=== PATIENT | male | born 1955 | race Caucasian/White ===

== ENCOUNTER 2017-07-12 06:32 | Emergency (ER) | payer BC ==
[2017-07-12 06:39] VITALS: RESP 18
--- NOTE | 2017-07-12 06:49 | ED ---
General Adult HPI - General Source: EMS, RN notes reviewed Mode of arrival: EMS Limitations: no limitations <Ramon Herron - Last Filed: 07/12/17 06:49> <Santos Renae - Last Filed: 07/12/17 08:06> - General Chief complaint: Abdominal Pain Stated complaint: chest pressure,cough Time Seen by Provider: 07/12/17 06:35 - History of Present Illness Initial comments: This is a 62-year-old male who presents emergency Department states he is nonsmoker he denies any history of diabetes hypertension high cholesterol. Patient states he has been coughing quite a bit lately and having quite a bit of sputum production as well as congestion. Patient states the lateral aspect of his ribs hurts bilaterally from all the coughing. Patient denies any diaphoresis. Patient denies any shortness of breath or difficulty breathing except while having a coughing fit. Patient denies any abdominal pain patient denies nausea vomiting diarrhea. Patient states he does have urinary frequency lately but no dysuria hematuria or urgency. Patient denies any fever or chills. Patient denies any chest pressure or heaviness. (Ramon Herron) - Related Data Previous Rx's Medication Instructions Recorded Azithromycin [Zithromax Z-pack] 0 mg PO DIRECTED #6 tab 07/12/17 Allergies Allergy/AdvReac Type Severity Reaction Status Date / Time No Known Allergies Allergy Verified 07/12/17 07:59 Review of Systems ROS Other: All systems not noted in ROS Statement are negative. <Ramon Herron - Last Filed: 07/12/17 06:49> ROS Other: All systems not noted in ROS Statement are negative. <Santos Renae - Last Filed: 07/12/17 08:06> ROS Statement: Those systems with pertinent positive or pertinent negative responses have been documented in the HPI. Past Medical History Past Medical History: Hypertension History of Any Multi-Drug Resistant Organisms: None Reported Past Surgical History: Appendectomy Past Psychological History: No Psychological Hx Reported Smoking Status: Former smoker Past Alcohol Use History: None Reported Past Drug Use History: None Reported <Ramon Herron - Last Filed: 07/12/17 06:49> General Exam Limitations: no limitations <Ramon Herron - Last Filed: 07/12/17 06:49> <Santos Renae - Last Filed: 07/12/17 08:06> - General Exam Comments Initial Comments: GENERAL: Patient is well-developed and well-nourished. Patient is nontoxic and well- hydrated and is in mild distress. ENT: Neck is soft and supple. No significant lymphadenopathy is noted. Oropharynx is clear. Moist mucous membranes. Neck has full range of motion without eliciting any pain. EYES: The sclera were anicteric and conjunctiva were pink and moist. Extraocular movements were intact and pupils were equal round and reactive to light. Eyelids were unremarkable. PULMONARY: Unlabored respirations. Good breath sounds bilaterally. CARDIOVASCULAR: There is a regular rate and rhythm without any murmurs gallops or rubs. ABDOMEN: Soft and nontender with normal bowel sounds. No palpable organomegaly was noted. There is no palpable pulsatile mass. SKIN: Skin is clear with no lesions or rashes and otherwise unremarkable. NEUROLOGIC: Patient is alert and oriented x3. Cranial nerves II through XII are grossly intact. Motor and sensory are also intact. Normal speech, volume and content. Symmetrical smile. MUSCULOSKELETAL: Normal extremities with adequate strength and full range of motion. No lower extremity swelling or edema. No calf tenderness. LYMPHATICS: No significant lymphadenopathy is noted PSYCHIATRIC: Normal psychiatric evaluation. (Ramon Herron) Medical Decision Making <Ramon Herron - Last Filed: 07/12/17 06:49> - Lab Data Result diagrams: 07/12/17 06:52 07/12/17 06:52 <Santos Renae - Last Filed: 07/12/17 08:06> - Medical Decision Making EKG shows normal sinus rhythm at 82 bpm NV interval is 1:30 QRS is 90 QT interv2 QTC is 446. EKG shows no ST segment elevation or depression. Dr. Renae will be taking over the care of this patient at 7 AM (Ramon Herron) 62-year-old male presenting with cough, nasal congestion, bilateral chest pain worse with coughing for 3 days. Patient's care was signed out at shift change awaiting laboratory studies and chest x-ray. I did reevaluate the patient, states he's had significant nasal congestion, cough with sputum production. No central chest pain. EKG is nonischemic. Chest x-ray shows hyperinflation consistent with COPD. laboratory studies reveal normal white count, stable hemoglobin, no signs of urinary tract infection, troponin negative. Patient does admit to quitting smoking 6 days ago. He did smoke for many years prior to this. No known history of COPD. On examination patient has good air entry, there is faint scattered wheezing, no respiratory distress. Patient is given DuoNeb and Decadron. He will be started on antibiotics for acute bronchitis. He will follow-up with his primary care physician. (Santos Renae) - Lab Data Lab Results 07/12/17 07/12/17 07/12/17 Range/Units 06:52 06:52 06:52 WBC 7.2 (3.8-10.6) k/uL RBC 4.97 (4.30-5.90) m/uL Hgb 14.9 (13.0-17.5) gm/dL Hct 45.4 (39.0-53.0) % MCV 91.4 (80.0-100.0) fL MCH 30.0 (25.0-35.0) pg MCHC 32.8 (31.0-37.0) g/dL RDW 13.1 (11.5-15.5) % Plt Count 303 (150-450) k/uL PT (9.0-12.0) sec INR (<1.2) APTT (22.0-30.0) sec Sodium 138 (137-145) mmol/L Potassium 4.2 (3.5-5.1) mmol/L Chloride 103 (98-107) mmol/L Carbon Dioxide 24 (22-30) mmol/L Anion Gap 11 mmol/L BUN 14 (9-20) mg/dL Creatinine 1.03 (0.66-1.25) mg/dL Est GFR (MDRD) Af Amer >60 (>60 ml/min/1.73 sqM) Est GFR (MDRD) Non-Af >60 (>60 ml/min/1.73 sqM) Glucose 158 H (74-99) mg/dL Calcium 9.2 (8.4-10.2) mg/dL Magnesium 1.8 (1.6-2.3) mg/dL Total Bilirubin 0.4 (0.2-1.3) mg/dL AST 26 (17-59) U/L ALT 22 (21-72) U/L Alkaline Phosphatase 96 (38-126) U/L Total Creatine Kinase 314 H (55-170) U/L CK-MB (CK-2) 4.3 H* (0.0-2.4) ng/mL CK-MB (CK-2) Rel Index 1.4 Troponin I <0.012 (0.000-0.034) ng/mL Total Protein 7.5 (6.3-8.2) g/dL Albumin 3.9 (3.5-5.0) g/dL Urine Color Urine Appearance (Clear) Urine pH (5.0-8.0) Ur Specific [place] (1.001-1.035) Urine Protein (Negative) Urine Glucose (UA) (Negative) Urine Ketones (Negative) Urine Blood (Negative) Urine Nitrite (Negative) Urine Bilirubin (Negative) Urine Urobilinogen (<2.0) mg/dL Ur Leukocyte Esterase (Negative) 07/12/17 07/12/17 Range/Units 06:52 07:10 WBC (3.8-10.6) k/uL RBC (4.30-5.90) m/uL Hgb (13.0-17.5) gm/dL Hct (39.0-53.0) % MCV (80.0-100.0) fL MCH (25.0-35.0) pg MCHC (31.0-37.0) g/dL RDW (11.5-15.5) % Plt Count (150-450) k/uL PT 10.2 (9.0-12.0) sec INR 1.0 (<1.2) APTT 25.5 (22.0-30.0) sec Sodium (137-145) mmol/L Potassium (3.5-5.1) mmol/L Chloride (98-107) mmol/L Carbon Dioxide (22-30) mmol/L Anion Gap mmol/L BUN (9-20) mg/dL Creatinine (0.66-1.25) mg/dL Est GFR (MDRD) Af Amer (>60 ml/min/1.73 sqM) Est GFR (MDRD) Non-Af (>60 ml/min/1.73 sqM) Glucose (74-99) mg/dL Calcium (8.4-10.2) mg/dL Magnesium (1.6-2.3) mg/dL Total Bilirubin (0.2-1.3) mg/dL AST (17-59) U/L ALT (21-72) U/L Alkaline Phosphatase (38-126) U/L Total Creatine Kinase (55-170) U/L CK-MB (CK-2) (0.0-2.4) ng/mL CK-MB (CK-2) Rel Index Troponin I (0.000-0.034) ng/mL Total Protein (6.3-8.2) g/dL Albumin (3.5-5.0) g/dL Urine Color Light Yellow Urine Appearance Clear (Clear) Urine pH 5.0 (5.0-8.0) Ur Specific [place] 1.004 (1.001-1.035) Urine Protein Negative (Negative) Urine Glucose (UA) Negative (Negative) Urine Ketones Negative (Negative) Urine Blood Negative (Negative) Urine Nitrite Negative (Negative) Urine Bilirubin Negative (Negative) Urine Urobilinogen <2.0 (<2.0) mg/dL Ur Leukocyte Esterase Negative (Negative) Disposition <Ramon Herron - Last Filed: 07/12/17 06:49> Time of Disposition: 08:05 <Santos Renae - Last Filed: 07/12/17 08:06> Clinical Impression: Acute bronchitis Disposition: HOME SELF-CARE Condition: Good Instructions: Acute Bronchitis (ED) Prescriptions: Azithromycin [Zithromax Z-pack] 0 mg PO DIRECTED #6 tab Referrals: Maximilian Yoder MD [Primary Care Provider] - 1-2 days
--- NOTE | 2017-07-12 07:10 | XR ---
EXAMINATION TYPE: XR chest 2V DATE OF EXAM: 07/12/2017 COMPARISON: NONE HISTORY: Chest pain TECHNIQUE: Frontal and lateral views of the chest are obtained. FINDINGS: The lungs are hyperinflated with biapical lucency and flattening of the diaphragms suggest ing underlying COPD. No evidence of focal consolidation, pleural effusion or pneumothorax. Heart is w ithin normal limits. Pulmonary vasculature en face is seen in the left basilar region as it appears l inear on the lateral image. Multilevel moderate degenerative changes of the thoracic spine are seen. IMPRESSION: 2. Radiographic sequela of COPD. 1. No acute cardiopulmonary process.
[2017-07-12 07:19] LABS: ALT 22 U/L (21-72); AST 26 U/L (17-59); Alkaline Phosphatase 96 U/L (38-126); Anion Gap 11 mmol/L; Blood Urea Nitrogen 14 mg/dL (9-20); Calcium 9.2 mg/dL (8.4-10.2); Carbon Dioxide 24 mmol/L (22-30); Chloride 103 mmol/L (98-107); Glucose 158 mg/dL (74-99); Magnesium 1.8 mg/dL (1.6-2.3); Non-African American GFR(MDRD) >60 (>60 ml/min/1.73 sqM); Potassium 4.2 mmol/L (3.5-5.1); Sodium 138 mmol/L (137-145); Total Bilirubin 0.4 mg/dL (0.2-1.3); Total Protein 7.5 g/dL (6.3-8.2)
[2017-07-12 07:23] LABS: Partial Thromboplastin Time 25.5 sec (22.0-30.0); Prothrombin Time 10.2 sec (9.0-12.0)
[2017-07-12 07:23] LABS: Appearance,Urine Clear (Clear); Bilirubin,Urine Negative (Negative); Glucose,Urine (UA) Negative (Negative); Ketones,Urine Negative (Negative); Leukocyte Esterase,Urine Negative (Negative); Nitrite,Urine Negative (Negative); Protein,Urine Negative (Negative); Specific Gravity,Urine 1.004 (1.001-1.035); UA Billing (MACRO vs. MICRO) CHEM; Urobilinogen,Urine <2.0 mg/dL (<2.0)
[2017-07-12 07:29] LABS: Creatine Kinase 314 U/L (55-170)
[2017-07-12 07:30] LABS: Aty Lym Flag Slight; CH 30.4; CHCM 33.4; HCT 45.4 % (39.0-53.0); HDW 2.24; HGB 14.9 gm/dL (13.0-17.5); MCHC 32.8 g/dL (31.0-37.0); MCV 91.4 fL (80.0-100.0); Mean Platelet Volume 6.9; RBC 4.97 m/uL (4.30-5.90); RDW 13.1 % (11.5-15.5); WBC 7.2 k/uL (3.8-10.6); WBC (Perox) 6.91
[2017-07-12 07:42] LABS: Troponin I <0.012 ng/mL (0.000-0.034)
[2017-07-12 07:49] LABS: Creatine Kinase MB 4.3 ng/mL (0.0-2.4)
[2017-07-12 07:57] LABS: Add Differential Manual Differential
[2017-07-12] MEDS ORDERED: IPRATROPIUM-ALBUTEROL 3 ML NEB INHALATION STA (07:59)
[2017-07-12] MEDS ORDERED: DEXAMETHASONE SOD PHOSPHATE 10 MG/ML 1 ML VIAL IV STA (07:59)
[2017-07-12 08:04] LABS: Nucleated Red Blood Cells 0 /100 WBC (0-0); Total Cells Counted 100
[2017-07-12 08:07] LABS: Manual Review Performed; RBC Morphology Normal
[2017-07-12 08:32] VITALS: BP 164/86; PULSE 79; TEMP 97.1
== END 2017-07-12 08:30 | disposition home or self-care (01) ==
LOC: EC 06:32
DX: J20.9 Acute bronchitis, unspecified (principal); R91.8 Other nonspecific abnormal finding of lung field; R07.9 Chest pain, unspecified; Z87.891 Personal history of nicotine dependence
CPT/HCPCS: 99284 ×2; 96374 ×2; 36415; 94640; 93005; 80053; 82550; 82553; 83735; 84484; 85025; 85610; 85730; 81003; 71020; J1100

== ENCOUNTER 2018-10-26 07:01 | Emergency (ER) | payer BC ==
[2018-10-26] MEDS ORDERED: SODIUM CHLORIDE 0.9% 1,000 ML IV STA (07:25)
[2018-10-26] MEDS ORDERED: MORPHINE SULFATE 4 MG/ML SYRINGE IV STA ×2 (07:25→08:22)
[2018-10-26] MEDS ORDERED: hydrALAZINE HCL 20 MG/ML 1 ML VIAL IVP STA (07:28)
--- NOTE | 2018-10-26 07:36 | ED ---
General Adult HPI - General Chief complaint: Back Pain/Injury Stated complaint: back pain Time Seen by Provider: 10/26/18 07:18 Source: patient, RN notes reviewed Mode of arrival: wheelchair Limitations: no limitations - History of Present Illness Initial comments: Patient is a pleasant 63-year-old male presenting to the emergency Department with left lower back discomfort. Onset of symptoms was after shoveling on Tuesday. Symptoms worsened Tuesday and again yesterday. Patient did not sleep well last night. Discomfort is positional. No comments or retention of bowel or bladder. No leg weakness. No history of chronic back problems. No abdominal pain. Patient has run out of his blood pressure medication however is unclear what it was. - Related Data Previous Rx's Medication Instructions Recorded Cyclobenzaprine [Flexeril] 10 mg PO TID PRN #12 tablet 10/26/18 Allergies Allergy/AdvReac Type Severity Reaction Status Date / Time No Known Allergies Allergy Verified 10/26/18 07:53 Review of Systems ROS Statement: Those systems with pertinent positive or pertinent negative responses have been documented in the HPI. ROS Other: All systems not noted in ROS Statement are negative. Constitutional: Denies: fever Eyes: Denies: eye pain ENT: Denies: ear pain Respiratory: Denies: cough, dyspnea Cardiovascular: Denies: chest pain Endocrine: Denies: fatigue Gastrointestinal: Denies: abdominal pain Genitourinary: Denies: dysuria Musculoskeletal: Reports: as per HPI, back pain Skin: Denies: rash Neurological: Denies: weakness Past Medical History Past Medical History: Hypertension History of Any Multi-Drug Resistant Organisms: None Reported Past Surgical History: Appendectomy Past Psychological History: No Psychological Hx Reported Smoking Status: Former smoker Past Alcohol Use History: None Reported Past Drug Use History: None Reported General Exam Limitations: no limitations General appearance: alert, in no apparent distress Head exam: Present: atraumatic Eye exam: Present: normal appearance, PERRL ENT exam: Present: normal oropharynx Neck exam: Present: normal inspection Respiratory exam: Present: normal lung sounds bilaterally. Absent: chest wall tenderness Cardiovascular Exam: Present: regular rate, normal rhythm, normal heart sounds Expanded Peripheral pulses: 2+: Radial (R), Radial (L), Posterior Tibialis (R), Posterior Tibialis (L), Dorsalis Pedis (R), Dorsalis Pedis (L) GI/Abdominal exam: Present: soft. Absent: tenderness Extremities exam: Present: normal inspection. Absent: pedal edema, calf tenderness Back exam: Present: tenderness ( No tenderness to palpation. Patient states palpation actually feels better.), muscle spasm (left paraLumbar) Neurological exam: Present: alert. Absent: motor sensory deficit Expanded Motor strength exam: RLE: 5, LLE: 5 Psychiatric exam: Present: normal affect, normal mood Skin exam: Present: normal color. Absent: rash Course Vital Signs 10/26/18 10/26/18 10/26/18 07:11 07:45 08:07 Temperature 97.9 F Pulse Rate 99 94 Respiratory 16 20 Rate Blood Pressure 177/105 181/113 164/100 O2 Sat by Pulse 97 95 Oximetry Medical Decision Making - Medical Decision Making Recheck blood sugar 261. Patient updated on CT results. Patient is made aware of concern regarding CT results and need for close follow-up with primary care physician and further evaluation regarding this. Patient is improved and is comfortable with discharge home at this point. - Lab Data Result diagrams: 10/26/18 07:27 10/26/18 07:27 Lab Results 10/26/18 10/26/18 10/26/18 Range/Units 07:27 07:27 07:27 WBC 14.0 H (3.8-10.6) k/uL RBC 4.96 (4.30-5.90) m/uL Hgb 14.8 (13.0-17.5) gm/dL Hct 45.4 (39.0-53.0) % MCV 91.4 (80.0-100.0) fL MCH 29.9 (25.0-35.0) pg MCHC 32.7 (31.0-37.0) g/dL RDW 14.0 (11.5-15.5) % Plt Count 288 (150-450) k/uL Neutrophils % 84 % Lymphocytes % 4 % Monocytes % 10 % Eosinophils % 0 % Basophils % 0 % Neutrophils # 11.7 H (1.3-7.7) k/uL Lymphocytes # 0.5 L (1.0-4.8) k/uL Monocytes # 1.4 H (0-1.0) k/uL Eosinophils # 0.0 (0-0.7) k/uL Basophils # 0.0 (0-0.2) k/uL PT 10.1 (9.0-12.0) sec INR 0.9 (<1.2) APTT 27.3 (22.0-30.0) sec Sodium 137 (137-145) mmol/L Potassium 4.4 (3.5-5.1) mmol/L Chloride 100 (98-107) mmol/L Carbon Dioxide 24 (22-30) mmol/L Anion Gap 13 mmol/L BUN 15 (9-20) mg/dL Creatinine 0.96 (0.66-1.25) mg/dL Est GFR (CKD-EPI)AfAm >90 (>60 ml/min/1.73 sqM) Est GFR (CKD-EPI)NonAf 84 (>60 ml/min/1.73 sqM) Glucose 313 H (74-99) mg/dL Calcium 9.2 (8.4-10.2) mg/dL Total Bilirubin 0.7 (0.2-1.3) mg/dL AST 16 L (17-59) U/L ALT 21 (21-72) U/L Alkaline Phosphatase 109 (38-126) U/L Total Protein 7.4 (6.3-8.2) g/dL Albumin 3.9 (3.5-5.0) g/dL - Radiology Data Radiology results: report reviewed (Computed tomography scan of the abdomen shows opacity inferior lingula, hernia, prostatomegaly, degenerative spinal changes, bony irregularity left femoral head and acetabulum. Nonspecific sclerotic foci right iliac bone.) Disposition Clinical Impression: Low back pain, Hyperglycemia Disposition: HOME SELF-CARE Instructions (If sedation given, give patient instructions): Acute Low Back Pain (ED) Additional Instructions: Lwek-lev-saixmed Tylenol or Motrin as needed. Please follow-up with your primary care physician in the next day or 2 for recheck. Have primary care physician review CT results, further testing will be needed. Have your blood pressure medicine refilled. Return for weakness, loss of control of bowel or bladder, worsening or change in symptoms, or other concerns. Prescriptions: Cyclobenzaprine [Flexeril] 10 mg PO TID PRN #12 tablet PRN Reason: Pain Is patient prescribed a controlled substance at d/c from ED?: No Referrals: Maximilian Yoder MD [Primary Care Provider] - 1-2 days Time of Disposition: 09:28
[2018-10-26 08:05] LABS: Basophils % (A) 0 %; Eosinophils % (A) 0 %; HCT 45.4 % (39.0-53.0); HGB 14.8 gm/dL (13.0-17.5); Lymphocytes # (A) 0.5 k/uL (1.0-4.8); Lymphocytes % (A) 4 %; MCH 29.9 pg (25.0-35.0); MCHC 32.7 g/dL (31.0-37.0); MCV 91.4 fL (80.0-100.0); Mean Platelet Volume 6.6; Monocytes # (A) 1.4 k/uL (0-1.0); Monocytes % (A) 10 %; Neutrophils # (A) 11.7 k/uL (1.3-7.7); Neutrophils % (A) 84 %; Platelet Count 288 k/uL (150-450); RBC 4.96 m/uL (4.30-5.90)
[2018-10-26 08:15] LABS: INR 0.9 (<1.2); Partial Thromboplastin Time 27.3 sec (22.0-30.0); Prothrombin Time 10.1 sec (9.0-12.0)
[2018-10-26 08:18] LABS: ALT 21 U/L (21-72); AST 16 U/L (17-59); Albumin 3.9 g/dL (3.5-5.0); Alkaline Phosphatase 109 U/L (38-126); Anion Gap 13 mmol/L; Blood Urea Nitrogen 15 mg/dL (9-20); Calcium 9.2 mg/dL (8.4-10.2); Carbon Dioxide 24 mmol/L (22-30); Chloride 100 mmol/L (98-107); Glucose 313 mg/dL (74-99); Potassium 4.4 mmol/L (3.5-5.1); Sodium 137 mmol/L (137-145); Total Bilirubin 0.7 mg/dL (0.2-1.3); Total Protein 7.4 g/dL (6.3-8.2)
--- NOTE | 2018-10-26 09:06 | CT ---
EXAMINATION TYPE: CT abdomen pelvis w con DATE OF EXAM: 10/26/2018 COMPARISON: NONE HISTORY: 63 year-old male lower back pain and left leg pain post injury 10/24/18 TECHNIQUE: Contiguous axial scanning of the abdomen and pelvis following administration of 100 ml Iso karen 300 IV contrast. Delayed images through the kidneys and coronal/sagittal reconstructions perform ed. CT DLP: 705.2 mGycm Automated exposure control for dose reduction was used. FINDINGS: Heart normal size without pericardial effusion. Focal opacity with air bronchogram inferior lingula m easuring 1.6 cm warrants follow-up. It has a somewhat nodular configuration. No pleural effusion. Small to moderate-sized hiatal hernia. Small amount of focal fat along the anterior falciform ligament. Portal venous system is patent. No b iliary ductal dilatation. Small layering gallstones measuring up to 6 mm. No abnormal gallbladder distention. If adrenal glands , kidneys, spleen, and pancreas show no gross abnormality. Numerous scattered nonenlarged mesenteric lymph nodes are present. Borderline ectatic infrarenal abdominal aorta at 2.5 cm and right common iliac artery at 1.6 cm. No dilated small bowel, free fluid, or free air. Normal appendix. Scattered mild stool burden and sigmoid diverticulosis. No pericolonic inflammatory change. There is a moderate-sized direct left sided inguinal hernia containing mesentery and a loop of small bowel. No inflammatory changes here and no abnormal bowel dilatation. The hernia sac measures 7.4 cm long and 5.5 cm wide, coronal image 29. Bladder urine distended. Prostate gland is large measuring 5.8 cm wide. No abnormal fluid collection in the pelvis or pelvic lymphadenopathy. Bones: Prominent subchondral bony irregularity and cystic change within the central articular aspect of the femoral head and also within the posterior inferior acetabulum. There is also suggestion of so me periarticular soft tissue thickening in both hips probably representing some degree of synovitis. Degenerative spurring on the right as well as a 1.9 cm paralabral ganglion cyst along the posterior s uperior aspect of the right acetabulum. Degenerative changes at the SI joints, left greater than right. Nonspecific sclerotic foci within the right iliac bone, axial image 43. Advanced degenerative disc di sease at L1-L2, L4-L5, L5-S1 with disc height loss. Grade 1 retrolisthesis at L1-L2 and grade 1, nearly grade 2 anterolisthesis at L5-S1 secondary to jocelynn ateral L5 pars defects. Hypertrophic facet arthropathy is present. On the left, changes result in sev ere neuroforaminal stenoses at both L3-L4 and L4-L5. On the right, changes result in severe neurofora gela stenosis at L4-L5. Possible spinal canal stenosis at L3-L4. IMPRESSION: 1. FOCAL OPACITY MEASURING 1.6 CM IN THE INFERIOR LINGULA COULD REPRESENT A SMALL INFECTIOUS/INFLAMMA TORY INFILTRATE. CORRELATE FOR ANY ACUTE RESPIRATORY SYMPTOMS. GIVEN THE SOMEWHAT NODULAR CONFIGURATI ON, RECOMMEND 3 MONTH FOLLOW-UP CT CHEST TO REASSESS THIS AREA. 2. [id number] SIZED HIATAL HERNIA AND CHOLELITHIASIS. 3. MODERATE-SIZED DIRECT LEFT INGUINAL HERNIA (7.5 X 5.5 CM) CONTAINING MESENTERY AND A LOOP OF SMAL L BOWEL. NO INFLAMMATORY OR OBSTRUCTIVE CHANGES. 4. PROSTATOMEGALY (5.8 CM). CORRELATE WITH PATIENT'S SYMPTOMS AND PSA VALUES. 5. PROMINENT SUBCHONDRAL BONY IRREGULARITY AND AREAS OF LUCENCY/CYSTIC CHANGE IN THE CENTRAL ARTICULA R ASPECT OF THE LEFT FEMORAL HEAD AND POSTERIOR INFERIOR ACETABULUM. SUSPECT A DEGENERATIVE ETIOLOGY AND INTRAOSSEOUS GANGLION CYST FORMATION. THERE IS ALSO A 1.9 CM PARALABRAL GANGLION AT THE RIGHT HIP . 6. ADVANCED DEGENERATIVE CHANGES WITHIN THE LUMBAR SPINE SOME OF WHICH IS DETAILED ABOVE. THIS INCLUD ES BILATERAL L5 PARS DEFECTS WITH GRADE 1, NEARLY GRADE 2 ANTEROLISTHESIS AT L5-S1. THERE IS VARIABLE SEVERE NEUROFORAMINAL STENOSES AT L3-L4 AND L4-L5. 7. A COUPLE NONSPECIFIC SCLEROTIC FOCI IN THE RIGHT ILIAC BONE COULD REPRESENT BONE ISLANDS. GIVEN IL OSTATIC ENLARGEMENT, CORRELATE WITH PSA VALUES. IF ABNORMALLY ELEVATED AND CONCERN FOR A NEOPLASTIC E TIOLOGY, WHOLE BODY BONE SCAN CAN SURVEY THE ENTIRE SKELETON.
[2018-10-26] MEDS ORDERED: INSULIN REGULAR 100 UNIT/ML VIAL SQ ONE (09:26)
[2018-10-26] MEDS ORDERED: amLODIPine 5 MG TAB PO STA (09:35)
[2018-10-26 09:36] LABS: Glucose,Whole Blood 261 mg/dL (75-99)
[2018-10-26 09:43] VITALS: BP 150/102; PULSE 90; RESP 16; TEMP 98
== END 2018-10-26 09:45 | disposition home or self-care (01) ==
LOC: EC 07:01
DX: M54.5 Low back pain (principal); R73.9 Hyperglycemia, unspecified; K44.9 Diaphragmatic hernia without obstruction or gangrene; N40.0 Benign prostatic hyperplasia without lower urinary tract symptoms; Z87.891 Personal history of nicotine dependence
CPT/HCPCS: 36415; 74177; 80053; 85025; 85610; 85730; 96361; 96374; 96375; 96376; 99284

== ENCOUNTER → 2018-11-06 | Outpatient (CLI) | payer BC ==
--- NOTE | 2018-11-06 15:07 | NM ---
EXAMINATION TYPE: NM bone scan whole body DATE OF EXAM: 11/06/2018 COMPARISON: NONE HISTORY: Low back pain Delayed whole-body scanning was performed following the injection of 25 mCi Tc 99m MDP. Images were acquired 3 hours post injection. FINDINGS: Focal radiotracer accumulation is at the medial left knee mandible some degenerative changes. Mild di ffuse uptake is at the right ankle likely related to some degenerative change Urinary bladder is distended obscures portions of the examination. Patient empty bladder multiple joshua es during the examination which remain full. There is a focal radiotracer accumulation in the posterior left cervical spine could be degenerative in nature There is focal radiotracer accumulation within the posterior lateral left 11th rib. Posttraumatic amy nges as well as neoplasm could be considered. Traumas favored given the lack of additional findings. IMPRESSION: 1. Scattered focal areas of uptake likely posttraumatic in nature and degenerative in nature.
== END ==
LOC: RADNMMAIN 09:41
PROVIDERS: ATTEND Family Medicine
DX: M54.5 Low back pain (principal); M25.552 Pain in left hip
CPT/HCPCS: 78306; A9503